=== PATIENT | female | born 1955 | race African-American/Black ===

== ENCOUNTER → 2017-06-12 | Outpatient (CLI) | payer OTHER ==
--- NOTE | 2017-06-12 09:06 | RAD ---
DATE: 06/12/2017 EXAM: DIGITAL SCREEN BILAT W/CAD HISTORY: Routine screening COMPARISON: 06/11/2016 This study was interpreted with the benefit of Computerized Aided Detection (CAD). The breast parenchyma shows scattered fibroglandular densities. Breast parenchyma level B. FINDINGS: No new or enlarging breast densities are seen. Again noted are stable clustered microcalcifications in the subareolar region on the left. No new abnormality is detected. IMPRESSION: Stable mammograms without evidence of malignancy. BI-RADS CATEGORY: 2 BENIGN FINDING(S) RECOMMENDED FOLLOW-UP: 12M 12 MONTH FOLLOW-UP PQRS compliance statement: Patient information was entered into a reminder system with a target due date for the next mammogram. Mammography is a sensitive method for finding small breast cancers, but it does not detect them all and is not a substitute for careful clinical examination. A negative mammogram does not negate a clinically suspicious finding and should not result in delay in biopsying a clinically suspicious abnormality. "Our facility is accredited by the [employer]ography [employer]."
== END | disposition home or self-care (01) ==
LOC: MAMMO 08:08
PROVIDERS: ATTEND Nurse Practitioner Adult Health
DX: Z12.31 Encounter for screening mammogram for malignant neoplasm of breast (principal)
CPT/HCPCS: G0202; 77067

== ENCOUNTER → 2018-06-16 | Outpatient (CLI) | payer OTHER | END | disposition home or self-care (01) | LOC: MAMMO 07:55 | DX: Z12.31 Encounter for screening mammogram for malignant neoplasm of breast (principal) | CPT/HCPCS: 77067 ==

== ENCOUNTER → 2019-06-22 | Outpatient (CLI) | payer OTHER ==
--- NOTE | 2019-06-23 08:54 | RAD ---
EXAM: DIGITAL SCREEN BILAT W/CAD HISTORY: routine screening evaluation. COMPARISON: Prior mammographic imaging dating back to 05/30/2014 Bilateral full field craniocaudal and mediolateral oblique images were obtained using digital technique. This study was interpreted with the benefit of Computerized Aided Detection (CAD). Breast Density: The breast parenchyma shows scattered fibroglandular densities. Breast parenchyma level B. FINDINGS: A group of calcifications within the retroareolar left breast, approximately 2.5 cm from the nipple are seen. Some of these calcifications were seen and stable to May 2014 however several likely new microcalcifications are seen. No suspicious mass or architectural distortion in the left breast. No suspicious masses, microcalcifications or architectural distortion is present to suggest malignancy in the right breast. The visualized axillae are unremarkable. IMPRESSION: Left breast indeterminate microcalcifications, findings for which additional imaging is advised. BI-RADS CATEGORY: 0 INCOMPLETE: NEEDS ADDITIONAL IMAGING EVALUATION AND/OR PRIOR MAMMOGRAMS FOR COMPARISON. RECOMMENDED FOLLOW-UP: ADD ADDITIONAL IMAGING The patient will be contacted to return for additional imaging and a supplemental report will follow. Spot magnification views and full field ML view of the left breast is recommended. PQRS compliance statement: Patient information was entered into a reminder system with a target due date for the next mammogram. Mammography is a sensitive method for finding small breast cancers, but it does not detect them all and is not a substitute for careful clinical examination. A negative mammogram does not negate a clinically suspicious finding and should not result in delay in biopsying a clinically suspicious abnormality. "Our facility is accredited by the [employer]amm[employer]." KYLAHD
== END | disposition home or self-care (01) ==
LOC: MAMMO 07:59
PROVIDERS: ATTEND Internal Medicine
DX: Z12.31 Encounter for screening mammogram for malignant neoplasm of breast (principal); N64.89 Other specified disorders of breast
CPT/HCPCS: 77067

== ENCOUNTER → 2019-07-02 | Outpatient (CLI) | payer OTHER ==
--- NOTE | 2019-07-02 10:08 | KCIC ---
Left breast diagnostic digital mammogram: Reason for examination: Left breast calcifications on screening mammogram. Comparison is made to previous studies dated 06/22/2019 and 06/16/2018. Coned compression magnification views were obtained of the left breast in CC and lateral projection. With these additional views, calcifications persists anteriorly in the upper inner quadrant of the left breast with associated nodule seen which appears to measure approximately 1.2 cm in size and shows some lobulation to the contour. Further evaluation with ultrasound follow. IMPRESSION: Calcification persist at the upper inner quadrant anteriorly in the left breast with associated 12 mm nodule. Ultrasound to follow. BI-RADS Category 0: Incomplete. Needs additional imaging evaluation. Left breast ultrasound: Ultrasound examination was performed in the area of mammographic concern and at the left axilla. In the 10:00 position 3 cm from the nipple, there is a 1.1 cm nodule with lobulated contour and containing echogenic flecks consistent with calcification which corresponds to the area of mammographic concern. Further evaluation with ultrasound-guided biopsy is recommended. There is also some ductal ectasia in the retroareolar position. No abnormal appearing lymph nodes are seen in the axilla. IMPRESSION: 11 mm slightly lobulated nodule with calcifications in the 10:00 position 3 cm from the nipple. Recommend further evaluation with ultrasound-guided biopsy. BI-RADS Category 4: Suspicious. These findings have been discussed with the patient and Aviva Freitas, was notified about these findings at 10:04 AM on 07/02/2019. "Our facility is accredited by the [employer] Mammography [employer]." This patient's information has been entered into a reminder system for the patient to be notified with the results of her examination and a target date for the next mammogram. Electronically signed by: Carina Cervantes MD (07/02/2019 10:05 AM) [id number]
== END | disposition home or self-care (01) ==
LOC: KCIC MAMMO 07:59
PROVIDERS: ATTEND Internal Medicine
DX: N63.22 Unspecified lump in the left breast, upper inner quadrant (principal); R92.1 Mammographic calcification found on diagnostic imaging of breast
CPT/HCPCS: 76641; 77065